=== PATIENT | female | born 1960 | race Caucasian/White ===

== ENCOUNTER → 2021-02-06 | Outpatient (CLI) | payer OTHER | END | disposition home or self-care (01) | LOC: RAD 11:03 | PROVIDERS: ATTEND Emergency Medicine | DX: N85.4 Malposition of uterus (principal); R10.2 Pelvic and perineal pain; R10.32 Left lower quadrant pain | CPT/HCPCS: 76830 ==

== ENCOUNTER 2021-04-03 05:23 | Emergency (ER) | payer OTHER ==
[~2021-04-03] VITALS: Ht 170.2 cm; Wt 71.9 kg
[2021-04-03 06:05] LABS: BASOPHILS % (AUTO) 1 % (0-1); EOSINOPHILS % (AUTO) 1 % (1-7); LYMPHOCYTES % (AUTO) 25 % (22-44); MEAN CORPUSCULAR HEMOGLOBIN 31.6 pg (27.0-34.8); MEAN CORPUSCULAR HGB CONC 34.2 g/dL (32.4-35.8); MEAN PLATELET VOLUME 7.7 fL (7.4-10.4); MONOCYTES % (AUTO) 6 % (2-9); NEUTROPHILS % (AUTO) 68 % (42-75); PLATELET COUNT 214 x10^3/uL (130-400); RED BLOOD COUNT 4.58 x10^6/uL (3.82-5.3); RED CELL DISTRIBUTION WIDTH 13.4 % (9.6-15.2)
--- NOTE | 2021-04-03 06:13 | NUR ---
Pt arrived with complaints of L sided CP. Pt awoke from sleep today with suddent CP, back pain, and drench in sweat. Pt is no longer diaphoretic, but has slight CP on L side and in back. Pt connected to all monitors, EKG done, VSS, spouse at bedside. TM
[2021-04-03 06:15] LABS: ALANINE AMINOTRANSFERASE 27 U/L (12-78); ALBUMIN 3.9 g/dL (3.4-5.0); ANION GAP 3 mmol/L (5-15); CALCIUM 9.6 mg/dL (8.5-10.1); CHLORIDE 109 mmol/L (98-107)
[2021-04-03 06:20] LABS: ALKALINE PHOSPHATASE 68 U/L (45-117); BILIRUBIN,TOTAL 0.8 mg/dL (0.2-1.0); CREATININE 0.75 mg/dL (0.55-1.02); TOTAL PROTEIN 7.1 g/dL (6.4-8.2); TROPONIN I < 0.015 ng/mL (0.000-0.045)
--- NOTE | 2021-04-03 06:51 | NUR ---
report to Alec JIMENEZ
[2021-04-03 08:10] LABS: MICROSCOPIC AUTO
--- NOTE | 2021-04-03 08:15 | NUR ---
URINE AND STOOL SAMPLE SENT PT BACK IN BED CALL REMOTE WITHIN REACH VSS.
[2021-04-03 08:54] LABS: TROPONIN I < 0.015 ng/mL (0.000-0.045)
--- NOTE | 2021-04-03 09:01 | NUR ---
REPORT FROM BARBARA HUANG FOR TRANSFER OF PATIENT CARE.
--- NOTE | 2021-04-03 09:48 | NUR ---
PATIENT RESTING IN [facility] ON PHONE, CONNECTED TO MONITOR, VSS, CALL LIGHT WITHIN REACH, NO FURTHER NEEDS AT THIS ITME. WAITING FOR STOOL RESULTS.
--- NOTE | 2021-04-03 10:06 | NUR ---
ERMD AT BEDSIDE TO DISCUSS POC.
--- NOTE | 2021-04-03 11:26 | NUR ---
PATIENT SITTING IN [facility] ON PHONE, IVETTE LAZAR, CALL LIGHT WITHIN REACH. WAITING FOR C.DIFF RESULTS, PATIENT OBS.
[2021-04-03 11:42] LABS: CLOSTRIDIUM DIFFICILE ANTIGEN NEGATIVE; CLOSTRIDIUM DIFFICILE TOXIN NEGATIVE (Negative)
--- NOTE | 2021-04-03 12:09 | NUR ---
PATIENT RESTING IN [facility], CONNECTED TO MONITOR, VSS, CALL LIGHT WITHIN REACH. C.DIFF RESULTED, PATIENT UP FOR RECHECK.
[2021-04-03 12:20] VITALS: BP 120/69
--- NOTE | 2021-04-03 12:43 | NUR ---
Patient given discharge instructions and they have confirmed that they understand the instructions. Patient ambulatory with steady gait. NAD, all questions answered appropriately, denies additional needs at this time. No personal belongings left in room after discharge.
== END 2021-04-03 12:45 | disposition home or self-care (01) ==
LOC: ED 08:34 → EDIP 10:48 → UNDOADMOB 10:48
DX: R07.89 Other chest pain (principal); R19.7 Diarrhea, unspecified; R94.31 Abnormal electrocardiogram [ECG] [EKG]; Z88.0 Allergy status to penicillin; Z88.5 Allergy status to narcotic agent
CPT/HCPCS: 36415; 71045; 80053; 81001; 84484; 85025; 87086; 87324; 93005; 99285